=== PATIENT | female | born 1960 | race Caucasian/White ===

== ENCOUNTER → 2018-10-19 15:14 | Outpatient (CLI) | payer MEDICAID, SELFPAY ==
--- NOTE | 2018-10-19 15:20 | XR_ITS ---
XR DEXA axial skeleton HISTORY: ITS.REASON: CHRONIC AROMATASE INHIBITOR USE ORDERING PHYSICIAN: Mac Fernandez PATIENT AGE: 58 years COMPARISON: None FINDINGS: The BMD measured at the AP Spine L1-L4 is 0.728 g/cm squared with a T score of -3.8. This is considered Osteoporotic according to the World Health Organization criteria. Fracture risk is High. Treatment is advised. Mean density of the hips has a T score of -2.1 IMPRESSION: Osteoporosis with high fracture risk. Treatment is advised. Suggest follow-up exam October 2019
== END ==
PROVIDERS: PCP Internal Medicine Medical Oncology; Visit Provider Internal Medicine Medical Oncology
DX: C50.411 Malignant neoplasm of upper-outer quadrant of right female breast (principal); Z17.0 Estrogen receptor positive status [ER+]
CPT/HCPCS: 77080

== ENCOUNTER → 2020-01-04 08:39 | Outpatient (CLI) | payer OTHER, SELFPAY ==
--- NOTE | 2020-01-04 08:43 | XR_ITS ---
PROCEDURE: XR DEXA AXIAL SKELETON CLINICAL HISTORY: OSTEOPENIA, postmenopausal currently on calcium COMPARISON: No exams were available for comparison FINDINGS: The right total hip BMD is 0.782 grams/centimeter squared with a t-score of -1.3. The right femoral neck is 0.616 grams/centimeter sq with a T-score -2.1.. The left total hip BMD is 0.649 grams/centimeter squared with a t-score of -2.4. The left femoral neck is 0.570 grams/centimeter sq with T-score -2.5.. The total lumbar spine BMD is 0.618 grams/centimeters sq with a t-score of -3.9. IMPRESSION: Osteopenia range right hip, osteoporosis values for left hip and lumbar spine, consider follow-up study in approximately 2 years Dictated by: Dr. Alphonso Figueroa MD 01/04/2020 10:17 Dr. Alphonso Figueroa MD in [place] 01/04/2020 10:17
== END ==
PROVIDERS: PCP Family Medicine; Visit Provider Internal Medicine Medical Oncology
DX: M85.89 Other specified disorders of bone density and structure, multiple sites (principal)
CPT/HCPCS: 77080

== ENCOUNTER 2020-08-11 09:58 | Emergency (ER) | payer OTHER, SELFPAY ==
[2020-08-11] VITALS (10 sets, daily range): BP systolic 107–175; BP diastolic 61–128; PULSE 112–152; RESP 18–20; TEMP 36.6–37.7; O2SAT 95–99; BMI 29.2
--- NOTE | 2020-08-11 10:02 | HMH.EDGENADL ---
ED Disposition Clinical Impression: Ureterolithiasis, Dehydration Disposition: Xfer Short-Term Hosp Condition on Discharge: Fair - Critical Care Critical Care Time: No Attestation: On , the high probability of a clinically significant, sudden or life threatening deterioration of the following system(s) required my full and direct attention, intervention and personal management. The time I documented below is in addition to time spent performing reported procedures but includes the following listed in this critical care notation. Medical Decision Making - Medical Records Medical records reviewed: Yes: I reviewed the patient's medical records. - [place] Inquiry Pt receiving controlled substance: Yes [place] was queried for this patient: No Risks and benefits of using a controlled substance: were discussed with pt by me Vital Signs: 08/11/20 09:59 08/11/20 11:33 Temperature 99.8 F H Temperature Source Oral Pulse Rate 134 H Pulse Rate [Radial] 112 H Respiratory Rate 20 Blood Pressure 155/86 H Blood Pressure [Right Arm] 175/100 H Blood Pressure Mean 97 Blood Pressure Mean [Right Arm] 125 Blood Pressure Position [Right Arm] Sitting 02 Sat by Pulse Oximetry 98 99 Oxygen Delivery Method Room Air - Lab Data Lab results reviewed: Yes: I reviewed the patient's lab results. Lab Results 08/11/20 10:20: WBC 17.0 H, RBC 4.54, Hgb 12.5, Hct 38.4, MCV 84.5, MCH 27.4, MCHC 32.5, RDW 14.3, Plt Count 132 L, MPV 9.2, Neut % (Auto) 94.8 H, Lymph % (Auto) 1.8 L, [place] % (Auto) 3.0, Eos % (Auto) 0.2, Baso % (Auto) 0.2, Neut # (Auto) 16.1 H, Lymph # (Auto) 0.3 L, [place] # (Auto) 0.5, Eos # (Auto) 0.0, Baso # (Auto) 0.0, Total Counted 100, Neutrophils % (Manual) 92 H, Band Neutrophils % 4.0, Lymphocytes % (Manual) 1 L, Monocytes % (Manual) 3, Platelet Estimate Normal, RBC Morphology Normal 08/11/20 10:20: Sodium 142, Potassium 4.1, Chloride 102, Carbon Dioxide 26, Anion Gap 18.1 H, BUN 40 H, Creatinine 3.30 H, Estimated Creat Clear 21, Estimated GFR 14 L*, Est GFR ( Amer) 17 L*, Glucose 182 H, Calcium 10.6 H 08/11/20 12:47: Urine Color Yellow, Urine Appearance Sl cloudy, Urine pH 7.0, Ur Specific [place] 1.015, Urine Protein Trace, Urine Glucose (UA) Negative, Urine Ketones Negative, Urine Blood 2+, Urine Nitrate Negative, Urine Bilirubin Negative, Urine Urobilinogen 0.2, Ur Leukocyte Esterase 3+ A, Urine RBC 5-10, Urine WBC Tntc, Ur Squamous Epith Cells None, Urine Bacteria 3+ Result diagrams: 08/11/20 10:20 08/11/20 10:20 Orders (Tests/Meds): ED MEDICATIONS Discontinued Medications Generic Name Dose Route Start Last Admin Trade Name Freq PRN Reason Stop Dose Admin Sodium Chloride 1,000 mls @ 999 mls/hr 08/11/20 10:15 08/11/20 10:38 Sod Chlor 0.9% 1000ml Bag IV 08/11/20 11:15 999 mls/hr .Q1H1M MINI Administration Morphine Sulfate 4 mg 08/11/20 10:02 08/11/20 10:38 Morphine 4mg/Ml Syringe IV 08/11/20 10:03 4 mg ONCE ONE Administration Morphine Sulfate 4 mg 08/11/20 11:40 08/11/20 11:43 Morphine 4mg/Ml Syringe IV 08/11/20 11:41 4 mg ONCE ONE Administration Ondansetron HCl 4 mg 08/11/20 10:02 08/11/20 10:37 Ondansetron 4mg/2ml Vial IV 08/11/20 10:03 4 mg ONCE ONE Administration ORDERS Category Date Time Status Urine Culture Stat Micro 08/11/20 12:47 Received - CT Data CT Scan: Abdomen, Pelvis Time Received: 11:[address] Reviewed: Yes: I have reviewed the patient's CT results Findings Narrative: Moderate-sized calculi at the UV junction of both kidneys with findings of mild to moderate obstructive uropathy of both kidneys though the left kidney appears to have underlying multi-cystic kidney disease Medical Decision Narrative: Lateral UVJ stents, 8 mm left, 9 mm right and new acute renal failure with a creatinine of 3.3. Given fluids, pain control. Urinalysis does not suggest UTI. Patient with anion gap and slight leukocytosis likely secondary
--- NOTE | 2020-08-11 10:08 | CT_ITS ---
PROCEDURE: CT ABDOMEN PELVIS WO CON CLINICAL INDICATION: right flank pain - stone? History of kidney stones COMPARISON: CT ABDPELW/WO CT ABD PELVIS W/WO CONTRAST from 09/07/2014 TECHNIQUE: Axial images obtained with sagittal and coronal reformats. All CT scans at the facility use one or more dose reduction, viz: automated exposure control, ma/kV adjustment per patient size (including targeted exams where dose is matched to indication, i.e. head), or iterative reconstruction technique. FINDINGS: Lower thorax: The lower lung cortez are clear and there is no pleural fluid. ABDOMEN: Liver: No masses or biliary dilatation. Gallbladder: The gallbladder is partially contracted but shows subtle hazy opacities suggesting possibility of biliary sludge but no definite calcified gallstones seen. Pancreas: No masses or peripancreatic fluid collections. Spleen: unremarkable Adrenals: unremarkable Kidneys/ureters: Kidneys are normal size though the left kidney slightly larger than right. Left kidney has a multi-cystic appearance. There is a 8.5 mm calculus sitting at the UV junction causing mild fullness of the left renal pelvis. There is a 9.6 mm calculus at the UV junction right kidney causing mild [place] caliectasis. There is moderate stranding of Gerota's fascia around the right kidney, gerota's fascia around the left kidney appears normal. There couple tiny nonobstructing calculi upper pole right kidney. There are no definite distal ureteral calculi on either side. ABDOMEN & PELVIS: Stomach bowel: There is a moderate-sized sliding hiatal hernia. The stomach and duodenal sweep appear normal. The small bowel is normal. There is minimal scattered gas and stool seen throughout the colon. Patient is post appendectomy. Peritoneum: No abnormal fluid collections. No obvious inflammatory changes. No free air. There is a tiny umbilical hernia containing fat only. Lymph nodes: No enlarged lymph nodes apparent. Vasculature: No evidence of abdominal aortic aneurysm. No retroperitoneal hemorrhage evident. Bones: No acute fracture PELVIS: Reproductive: Post hysterectomy with multiple surgical clips just above the vaginal cuff and posterior to the base of the urinary bladder. Bladder: Decompressed but otherwise appears normal, there is no free fluid in the pelvis. Appendix: Appendectomy IMPRESSION: Moderate-sized calculi at the UV junction of both kidneys with findings of mild to moderate obstructive uropathy of both kidneys though the left kidney appears to have underlying multi-cystic kidney disease Dictated by: Dr. Alphonso Figueroa MD 08/11/2020 10:46 Dr. Alphonso Figueroa MD in [place] 08/11/2020 10:46
[2020-08-11 10:35] LABS: Basophils % 0.2 % (0.1-2.0); Eosinophils % 0.2 % (0.1-12.0); Hematocrit 38.4 % (37.0-47.0); Hemoglobin 12.5 g/dL (12.2-16.2); Lymphocytes # 0.3 K/mm3 (0.7-4.5); Lymphocytes % 1.8 % (10-50); Mean Corpuscular HGB Conc 32.5 g/dL (31.8-35.4); Mean Corpuscular Hemoglobin 27.4 pg (27.0-31.2); Mean Corpuscular Volume 84.5 fl (81-99); Mean Platelet Volume 9.2 fl (7.4-10.4); Monocytes # 0.5 K/mm3 (0.1-1.0); Neutrophils # 16.1 K/mm3 (1.8-7.8); Neutrophils % 94.8 % (37.0-80.0); Platelet Count 132 K/mm3 (142-424); Red Blood Count 4.54 M/mm3 (4.20-5.40); Red Cell Distribution Width 14.3 % (11.5-17.5)
[2020-08-11 10:41] LABS: Potassium 4.1 mmoL/L (3.5-5.1)
[2020-08-11 10:43] LABS: MANUAL DIFFERENTIAL MANUAL DIFFERENTIAL (MANUAL DIFF)
[2020-08-11 10:45] LABS: Anion Gap 18.1 mEq/L (5-15); Blood Urea Nitrogen 40 mg/dl (7-17); Calcium 10.6 mg/dl (8.4-10.2); Carbon Dioxide 26 mmol/L (22.0-30.0); Chloride 102 mmol/L (98-107); Creatinine Clearance Estimated 21 mL/min (50-200); Estimated Glomerular Filt Rate 14 ml/min (>60); GFR (African American) 17 ML/MIN (>60); Glucose 182 mg/dl (74-100); Sodium 142 mmol/L (136-145)
[2020-08-11 11:20] LABS: Lymphocytes % 1 % (10-50); Monocytes % 3 % (2-9); Neutrophils % 92 % (42-76); Platelet Estimate Normal; RBC Morphology Normal; Total Cells Counted 100
[2020-08-11 12:56] LABS: Microscopic, Urine URINE MICROSCOPIC (MICROSCOPIC)
[2020-08-11 12:57] LABS: Appearance,Urine SL CLOUDY (Clear); Bilirubin,Urine Negative (Negative); Blood, Urine 2+ (Negative); Color,Urine YELLOW (Yellow); Glucose,Urine (UA) Negative (Negative); Ketones,Urine Negative (Negative); Leukocyte Esterase,Urine 3+ (Negative); Nitrate,Urine Negative (Negative); Protein,Urine TRACE (Negative); Specific Gravity, Urine 1.015 (1.005-1.030); Urobilinogen,Urine 0.2 EU/dl (0.2)
[2020-08-11 13:04] LABS: Bacteria,Urine 3+ /lpf; WBC,Urine TNTC #/hpf (0-3)
--- NOTE | 2020-08-11 13:17 | PC.NURSE ---
[facility] called for urology
--- NOTE | 2020-08-11 13:43 | PC.NURSE ---
UROLOGY AT [facility] HAS ACCEPTED PT WAITING ON HOSPITALIST TO CALL BACK
--- NOTE | 2020-08-11 14:25 | PC.NURSE ---
hospitalist accepted pt facesheet sent
[2020-08-11 15:11] LABS: Coronavirus 19 IgG Antibody Positive (Negative)
[2020-08-11 15:13] LABS: Coronavirus 19 IgM Antibody Positive (Negative)
--- NOTE | 2020-08-11 15:34 | PC.NURSE ---
attempted to call report to [facility], will call back
--- NOTE | 2020-08-11 16:03 | PC.NURSE ---
report called to [facility]
== END 2020-08-11 16:06 | disposition short-term general hospital (02) ==
PROVIDERS: Emergency Provider Emergency Medicine; PCP Physician Assistant
DX: N20.1 Calculus of ureter (principal); E86.0 Dehydration; I10 Essential (primary) hypertension; E78.5 Hyperlipidemia, unspecified; Z01.84 Encounter for antibody response examination; Z79.899 Other long term (current) drug therapy; Z85.3 Personal history of malignant neoplasm of breast
CPT/HCPCS: 74176; 80048; 81001; 85007; 85025; 86328; 87086; 87088; 87186; 96365; 96367; 96375; 96376; 99284; J2405

== ENCOUNTER → 2020-09-05 09:43 | Outpatient (CLI) | payer OTHER, SELFPAY ==
--- NOTE | 2020-09-05 09:45 | XR_ITS ---
PROCEDURE: XR DEXA AXIAL SKELETON CLINICAL HISTORY: POST MENOPAUSAL COMPARISON: No exams were available for comparison FINDINGS: The right hip BMD is 0.630 with a T-score of -2.0. The left hip BMD is 0.647 with a T-score of -2.4. The lumbar spine BMD is 0.640 with a T-score of -3.7. IMPRESSION: This patient is considered osteoporotic according to the World Health Organization criteria. Fracture risk is high. Treatment is advised. Based on these results a follow-up exam is recommended in 1 year. Dictated by: Kenyon Miguel MD 09/06/2020 13:56 Kenyon Miguel MD in [facility] 09/06/2020 13:56
== END ==
PROVIDERS: PCP Physician Assistant; Visit Provider Internal Medicine Medical Oncology
DX: M81.0 Age-related osteoporosis without current pathological fracture (principal); Z78.0 Asymptomatic menopausal state
CPT/HCPCS: 77080

== ENCOUNTER → 2020-09-26 10:40 | Outpatient (CLI) | payer OTHER, SELFPAY | PROVIDERS: PCP Family Medicine; Visit Provider Urology | DX: Z01.812 Encounter for preprocedural laboratory examination (principal); Z11.52 Encounter for screening for COVID-19; N20.1 Calculus of ureter | CPT/HCPCS: U0003 ==

== ENCOUNTER → 2020-10-10 11:12 | Outpatient (CLI) | payer OTHER, SELFPAY | PROVIDERS: Visit Provider Urology | DX: Z20.822 Contact with and (suspected) exposure to COVID-19 (principal) | CPT/HCPCS: U0003 ==

== ENCOUNTER → 2020-11-01 12:34 | Outpatient (CLI) | payer OTHER, SELFPAY | PROVIDERS: Visit Provider Urology | DX: Z20.822 Contact with and (suspected) exposure to COVID-19 (principal) | CPT/HCPCS: U0003 ==

== ENCOUNTER → 2020-11-21 10:33 | Outpatient (CLI) | payer OTHER, SELFPAY ==
[2020-11-21 10:38] LABS: Microscopic, Urine URINE MICROSCOPIC (MICROSCOPIC)
[2020-11-21 10:47] LABS: Appearance,Urine CLEAR (Clear); Bilirubin,Urine Negative (Negative); Blood, Urine 1+ (Negative); Color,Urine YELLOW (Yellow); Glucose,Urine (UA) Negative (Negative); Ketones,Urine Negative (Negative); Leukocyte Esterase,Urine Negative (Negative); Nitrate,Urine Negative (Negative); Protein,Urine Negative (Negative); Urobilinogen,Urine 0.2 EU/dl (0.2)
[2020-11-21 11:00] LABS: Squamous Epithelial Cell,Urine Occasional #/hpf (0-5)
== END ==
PROVIDERS: Visit Provider Internal Medicine Infectious Disease
DX: N10 Acute pyelonephritis (principal)
CPT/HCPCS: 81001; 87086; 87088; 87186

== ENCOUNTER → 2021-05-17 10:30 | Outpatient (CLI) | payer OTHER, SELFPAY ==
[2021-05-17 11:48] LABS: Alanine Aminotransferase 10 U/L (12-78); Albumin Level 4.3 g/dl (3.5-5.0); Albumin/Globulin Ratio 1.6 (1.1-1.8); Alkaline Phosphatase 39 U/L (38-126); Anion Gap 12.5 mEq/L (5-15); Aspartate Amino Transferase 26 U/L (14-36); Bilirubin,Total 0.4 mg/dl (0.2-1.3); Blood Urea Nitrogen 27 mg/dl (7-17); Calcium 10.1 mg/dl (8.4-10.2); Carbon Dioxide 28 mmol/L (22.0-30.0); Chloride 103 mmol/L (98-107); Chol/HDL Ratio 3.4 (1-3.5); Cholesterol 205 mg/dl (140-200); Estimated Glomerular Filt Rate 38 ml/min (>60); GFR (African American) 47 ML/MIN (>60); Globulin 2.7 g/dL (1.3-3.2); Glucose 98 mg/dl (74-100); HDL Cholesterol 61 mg/dl (40-60); Potassium 4.5 mmoL/L (3.5-5.1); Sodium 139 mmol/L (136-145); Triglycerides 211 mg/dl (30-150); VLDL Cholesterol 42 mg/dL (0-40)
[2021-05-17 11:59] LABS: Direct LDL Cholesterol 111.38 mg/dL (100-129)
[2021-05-17 17:20] LABS: Hemoglobin A1C 5.8 % (4.0-6.0)
== END ==
PROVIDERS: Visit Provider Physician Assistant
DX: I10 Essential (primary) hypertension (principal); E78.2 Mixed hyperlipidemia; R73.09 Other abnormal glucose
CPT/HCPCS: 36415; 80053; 80061; 83036

== ENCOUNTER → 2021-07-24 09:46 | Outpatient (CLI) | payer OTHER, SELFPAY ==
--- NOTE | 2021-07-24 09:51 | US_ITS ---
FINAL REPORT TECHNIQUE: Ultrasound images of the kidneys and bladder were obtained. CLINICAL HISTORY: HYRONEPHROSIS FINDINGS: The right kidney measures 9.5 cm in length. It is normal in echogenicity. There is no hydronephrosis. The left kidney measures 11.1 cm in length. It is normal in echogenicity. There is moderate to severe hydronephrosis. The spleen is unremarkable. Incidental finding of gallstone in the gallbladder. IMPRESSION: Moderate to severe left hydronephrosis. Reviewed, Interpreted and Dictated by Patrick Pizano III, MD Transcribed by Karla Brewer Authenticated by Patrick Pizano III, MD on 07/24/2021 12:49:00 PM [facility]
== END ==
PROVIDERS: PCP Family Medicine; Visit Provider Urology
DX: N18.30 Chronic kidney disease, stage 3 unspecified (principal); N20.0 Calculus of kidney
CPT/HCPCS: 76770

== ENCOUNTER → 2022-03-13 08:44 | Outpatient (CLI) | payer OTHER, SELFPAY ==
--- NOTE | 2022-03-13 08:55 | XR_ITS ---
FINAL REPORT TECHNIQUE: Bone densitometry calculations of the lumbar spine and hip were obtained. CLINICAL HISTORY: osteoporosis COMPARISON: 09/05/2020 FINDINGS: DEXA BONE DENSITY AXIAL SKELETON Using L1-4, the bone mineral density of the spine is 0.679 g/cm2, corresponding to T-score of -3.3. Previously measured 0.640 g/cm2, corresponding to T-score of -3.7. Using the left hip, the bone mineral density of the femoral neck is 0.659 g/cm2, corresponding to a T-score of -2.3. Previously measured 0.647 g/cm2, corresponding to T-score of -2.4. NOTE: T-score: Standard deviation compared with peak bone mass of young adult mean. *Following the recommendations of the International Society of Bone densitometry, classification of hip BMD is based on the lower of two T-scores; total hip or femoral neck. IMPRESSION: Osteoporosis: Lowest T-score is at or below -2.5. This patient's T-score meets the World Health Organization criteria for osteoporosis. FRAX not reported because: Some T-score for Spine Total or hip Total or femoral neck at or below -2.5. Patient treated for osteoporosis. Reviewed, Interpreted and Dictated by Patrick Pizano III, MD Transcribed by Karla Brewer Authenticated and [facility]
== END ==
PROVIDERS: PCP Family Medicine; Visit Provider Physician Assistant
DX: M81.0 Age-related osteoporosis without current pathological fracture (principal)
CPT/HCPCS: 77080

== ENCOUNTER → 2022-05-02 08:46 | Outpatient (CLI) | payer OTHER, SELFPAY ==
--- NOTE | 2022-05-02 08:49 | US_ITS ---
FINAL REPORT CLINICAL HISTORY: NAUSEA AND VOMITING FINDINGS: Sonographic images of the right upper quadrant were obtained. The pancreas is partially obscured. The liver has increased echogenicity consistent with fatty infiltration. There is a large gallstone within the gallbladder. There is no evidence of biliary ductal dilatation.The common duct measures 2 mm. Limited images of the right kidney are unremarkable. IMPRESSION: Fatty liver. Cholelithiasis. Reviewed, Interpreted and Dictated by Patrick Pizano III, MD Transcribed by Karla Brewer Authenticated and [facility]
== END ==
PROVIDERS: PCP Family Medicine; Visit Provider Physician Assistant
DX: R11.2 Nausea with vomiting, unspecified (principal)
CPT/HCPCS: 76705

== ENCOUNTER → 2022-05-09 12:40 | Outpatient (CLI) | payer OTHER, SELFPAY | PROVIDERS: PCP Family Medicine; Visit Provider Urology | DX: N13.1 Hydronephrosis with ureteral stricture, not elsewhere classified (principal) ==

== ENCOUNTER → 2022-05-17 09:23 | Outpatient (POV) | payer OTHER, SELFPAY | PROVIDERS: Visit Provider Internal Medicine Nephrology | DX: Z00.00 Encounter for general adult medical examination without abnormal findings (principal) ==

== ENCOUNTER → 2022-05-17 09:33 | Outpatient (CLI) | payer OTHER, SELFPAY ==
--- NOTE | 2022-05-17 09:37 | NM_ITS ---
FINAL REPORT CLINICAL HISTORY: HYDRONEPHROSIS DUE TO OBSTRUCTION FINDINGS: FINDINGS: KIDNEY IMAGING W/FUNCTION STUDY NM Sequential posterior projection images of the abdomen and pelvis were obtained after the intravenous injection of 9.72 mCi of technetium 99m MAG3. On perfusion imaging there is normal perfusion to the right kidney. There is markedly diminished perfusion to the left kidney. Twelve % uptake in the left kidney and 88 % uptake in the right kidney. On function imaging the time to peak of the left kidney is 19 minutes, markedly delayed. There is no significant excretion by the left kidney. The time to peak for the right kidney is 9 minutes, delayed but excretion curve is otherwise normal. IMPRESSION: Markedly decreased perfusion to the left kidney with no appreciable excretion. Somewhat delayed time to peak for the right kidney with otherwise normal excretion curve. Reviewed, Interpreted and Dictated by Patrick Pizano III, MD Transcribed by Clay Lu Authenticated and [facility]
== END ==
PROVIDERS: PCP Family Medicine; Visit Provider Urology
DX: N13.1 Hydronephrosis with ureteral stricture, not elsewhere classified (principal)
CPT/HCPCS: 78707; A9562

== ENCOUNTER → 2022-06-03 07:50 | Outpatient (CLI) | payer OTHER, SELFPAY ==
--- NOTE | 2022-06-03 07:51 | FL_ITS ---
FINAL REPORT CLINICAL HISTORY: . abd pain 1:05 fluoro time FINDINGS: SMALL BOWEL FOLLOW THROUGH HISTORY: Right upper quadrant abdominal pain . PROCEDURE: The patient ingested barium. Spot and overhead films were obtained. FINDINGS: The sharepoint net developer film demonstrates multiple surgical clips overlying the pelvis. The transit time to the colon is normal. Contrast reaches the colon in 30 minutes. The mucosal fold pattern is normal. Spot images of the terminal ileum are grossly unremarkable. A total of 17 images were saved. Fluoroscopy time: 1 minute 5 seconds IMPRESSION: Normal small bowel follow-through. Reviewed, Interpreted and Dictated by Estrella Shin MD Transcribed by Sis Hills PA-C Authenticated and [facility]
--- NOTE | 2022-06-03 07:51 | FL_ITS ---
FINAL REPORT CLINICAL HISTORY: . dysphagia, gallstones, abd pain 1:25 fluoro time FINDINGS: AIR CONTRAST UPPER GI HISTORY: Dysphagia, gallstones, right upper quadrant abdominal pain. TECHNIQUE: Patient ingested thick and thin barium contrast. Effervescent crystals were also administered. Spot and overhead films were obtained. FINDINGS: There is a small sliding type hiatal hernia identifed. No mucosal defects are seen and motility appears normal. The stomach is of normal size, shape and position. No gastric filling defects are seen. The duodenal bulb and sweep appear unremarkable. There is gastroesophageal reflux to the midesophagus. 13mm Barium tablet passes easily through the esophagus and into the stomach. 32 images were saved. Fluoroscopy time: 1 minute 25 seconds IMPRESSION: Small sliding type hiatal hernia with gastroesophageal reflux. Otherwise, unremarkable upper GI series. Reviewed, Interpreted and Dictated by Estrella Shin MD Transcribed by Sis Hills PA-C Authenticated and [facility]
== END ==
PROVIDERS: PCP Family Medicine; Visit Provider Surgery
DX: R13.10 Dysphagia, unspecified (principal)
CPT/HCPCS: 74221; 74246; 74250

== ENCOUNTER 2022-07-23 07:20 | Day surgery (SDC) | payer OTHER, SELFPAY ==
[2022-07-19 13:10] VITALS: BMI 27.3
[2022-07-23 07:34] VITALS: BP 120/56; PULSE 79; RESP 18; TEMP 36.8; O2SAT 98
--- NOTE | 2022-07-23 07:47 | P.PN_ITS ---
[facility] Disclaimer: The information contained in this section may have been updated after the patient was seen, as this information can be updated by other users. Medical History Breast cancer History of gastroesophageal reflux (GERD) Hyperlipidemia Hypertension Hypertension Kidney stone Osteoporosis Urinary tract infection Surgical History History of appendectomy History of section History of hysterectomy History of lumpectomy Family History Father Family history of Alzheimer's disease Family history of stroke Social History Smoking Status: Never smoker alcohol intake: never substance use type: denies use current occupational status: employed Travel in the last 8 weeks: None [facility] Anesthesia Checklist Patient Identification Patient Identification: Arm Band and Verbal (Name & ) Structural Data Admitted From: Home Planned Operative Procedure/s: EGD Consent for Planned Operative Procedure(s) Verified: Yes NPO Status Verified Time NPO: 00:00 Airway Assessment C-Spine Mobility Assessed: Yes TMJ Mobility Assessed: Yes Dentition: Poor Dentition Neurological Assessment Level of Consciousness: Awake Hx Seizures: No Numbness or tingling in extremities: No Anesthesia Plan Anesthesia Risk discussed: Yes Anesthesia Plan: Verified ASA Class: II Anesthesia Type: MAC
--- NOTE | 2022-07-23 08:14 | HMH.SCOPE ---
Procedure: Date: 07/23/22 Patient Date of :: 1960 Procedure Performed:: Esophagogastroduodenoscopy with biopsy Indications:: Dysphagia Reflux Left upper quadrant pain Forwarded from recent office visit: UGI/BS Details: The patient returns for follow-up status post barium swallow/UGI/SBFT.? Small bowel follow-through essentially normal.? Barium swallow/UGI series revealed small sliding hiatal hernia with reflux noted to the mid esophagus.? No other anomalies noted.? Please see truncated portion of note forwarded below from most recent visit on May 15, 2022. Still complains of reflux and difficulty with things going through .? She continues to deny right upper quadrant pain or postprandial nausea.? She also has no history of jaundice. Forwarded from May 15, 2022 note: Details: This is a 62-year-old female seen in consultation from Dr. Burch and Naya Begum PA-C for evaluation regarding cholelithiasis.? Over the past few months she has had left-sided abdominal pain and reflux.? She also states that things do not seem to go down right .? She does have some emesis but she states that it almost always is caused by coughing .? Recent ultrasound did reveal a large gallstone within the gallbladder.? No biliary dilatation noted.? No evidence of cholecystitis noted. (1) Left upper quadrant pain: ?Plan: Proton pump inhibition (2) Dysphagia: ? ? ?Plan: Barium swallow/UGI/SBFT ordered Possible EGD in near future (3) Nausea & vomiting: ? ? ?Plan: UGI/SBFT ordered May benefit from gastric emptying scan (4) Gastroesophageal reflux: ? ? ?Plan: Proton pump inhibition Possible EGD in near future (5) Cholelithiasis: ? ? ?Plan: Discussion with regard to possible laparoscopic cholecystectomy will be ongoing Performing Provider:: Harmeet Smith MD Referring Provider:: . Sedation:: Monitored anesthesia care Procedure:: After informed consent was obtained the patient was taken to the endoscopy suite. Sedation ensued after the patient was transferred to the left lateral decubitus position. Pulse, blood pressure, and oxygen saturation were monitored throughout the procedure. The endoscope was advanced beyond the duodenal bulb. Retroflexion within the gastric lumen was accomplished. The gastroscope was carefully removed and the patient was transferred to recovery in stable condition. Please see findings and specimens below for detail. Findings:: Gastroesophageal junction displaced at 32 cm Sliding hiatal hernia (moderate) Streaking distal gastritis (mild) Somewhat stenotic pylorus (no dilation today beyond what was provided by passage of the endoscope) Specimens:: Antral biopsy Recommendations:: Somewhat stenotic pylorus; however, no obvious gastric outlet obstruction or delay noted per UGI/SBFT. May benefit from gastric emptying study. May benefit from short-term repeat EGD with dilatation. Sliding hiatal hernia confirmed; however, no definitive inflammatory changes of the mid/distal esophagus. Continue proton pump inhibition. Complications:: No immediate Estimated blood obtained (mL): 1
[2022-07-23 08:16] VITALS: O2SAT 98
[2022-07-23 08:31] VITALS: BP 103/74; PULSE 102; RESP 15; TEMP 36.6; O2SAT 94
[2022-07-23 08:41] VITALS: BP 96/46; PULSE 78; RESP 16; O2SAT 98
[2022-07-23 09:01] VITALS: BP 107/48; PULSE 82; RESP 16; TEMP 36.8; O2SAT 98
[2022-07-23 09:51] VITALS: BP 98/58; PULSE 82; RESP 16; O2SAT 98
== END 2022-07-23 09:05 | disposition home or self-care (01) ==
PROVIDERS: PCP Family Medicine; Visit Provider Surgery
PROC: 0DJ08ZZ Inspection of Upper Intestinal Tract, Via Natural or Artificial Opening Endoscopic (ICD-10-PCS; CPT 43235; principal; 2022-07-23 08:30)
DX: R13.10 Dysphagia, unspecified (principal); K21.9 Gastro-esophageal reflux disease without esophagitis; K31.9 Disease of stomach and duodenum, unspecified; R10.12 Left upper quadrant pain; K44.9 Diaphragmatic hernia without obstruction or gangrene; K29.70 Gastritis, unspecified, without bleeding; Z79.899 Other long term (current) drug therapy
CPT/HCPCS: 43239

== ENCOUNTER → 2022-10-21 09:35 | Outpatient (CLI) | payer OTHER, SELFPAY | PROVIDERS: PCP Family Medicine; Visit Provider Internal Medicine Nephrology | DX: Z78.0 Asymptomatic menopausal state (principal) ==

== ENCOUNTER 2023-09-17 15:16 | Outpatient (CLI) | payer OTHER, SELFPAY ==
[2023-09-17 15:28] LABS: Microscopic, Urine URINE MICROSCOPIC (MICROSCOPIC)
[2023-09-17 16:39] LABS: Hematocrit 36.9 % (37.0-47.0); Hemoglobin 11.9 g/dL (12.2-16.2); Mean Corpuscular HGB Conc 32.4 g/dL (31.8-35.4); Mean Corpuscular Hemoglobin 28.6 pg (27.0-31.2); Mean Corpuscular Volume 88.4 fl (81-99); Platelet Count 194 K/mm3 (142-424); Red Blood Count 4.17 M/mm3 (4.20-5.40); Red Cell Distribution Width 14.7 % (11.5-17.5); White Blood Count 6.5 K/mm3 (4.8-10.8)
[2023-09-17 17:05] LABS: Albumin Level 4.5 g/dl (3.5-5.0); Blood Urea Nitrogen 24 mg/dl (7-17); Calcium 9.9 mg/dl (8.4-10.2); Carbon Dioxide 26 mmol/L (22.0-30.0); Chloride 108 mmol/L (98-107); Estimated Glomerular Filt Rate 33 ml/min (>60); GFR (African American) 40 ML/MIN (>60); Glucose 103 mg/dl (74-100); Phosphorous 4.4 mg/dl (2.5-4.5); Sodium 142 mmol/L (136-145)
[2023-09-17 17:24] LABS: 25-OH Vitamin D, Total 51.9 ng/mL (30-100)
[2023-09-17 18:11] LABS: Appearance,Urine SL CLOUDY (Clear); Bilirubin,Urine Negative (Negative); Blood, Urine 1+ (Negative); Color,Urine YELLOW (Yellow); Glucose,Urine (UA) Negative (Negative); Ketones,Urine Negative (Negative); Leukocyte Esterase,Urine 1+ (Negative); Nitrate,Urine POSITIVE (Negative); Protein,Urine Negative (Negative); Specific Gravity, Urine >= 1.030 (1.005-1.030); Urobilinogen,Urine 0.2 EU/dl (0.2)
[2023-09-17 19:30] LABS: Bacteria,Urine 3+ /lpf; RBC,Urine Occasional #/hpf (0-3); Squamous Epithelial Cell,Urine Occasional #/hpf (0-5); Transitional Epi Cells,Urine OCC #/lpf (0-3)
[2023-09-17 20:49] LABS: Creatinine,Urine Random 118 mg/dL (Not Estab.)
[2023-09-25 15:13] LABS: PTH Related Peptide < 2.0
== END 2023-09-17 23:59 | disposition home or self-care (01) ==
LOC: LAB 15:17
PROVIDERS: PCP Family Medicine; Visit Provider Nurse Practitioner
DX: N18.32 Chronic kidney disease, stage 3b (principal); E55.9 Vitamin D deficiency, unspecified; N39.0 Urinary tract infection, site not specified; B96.29 Other Escherichia coli [E. coli] as the cause of diseases classified elsewhere
CPT/HCPCS: 36415; 80069; 81001; 82306; 82397; 82570; 84156; 85014; 85018; 85048; 85049; 87086

== ENCOUNTER 2023-09-22 13:03 | Outpatient (POV) | payer OTHER, SELFPAY | END 2023-09-22 23:59 | disposition home or self-care (01) | LOC: SC 13:03 | PROVIDERS: Visit Provider Nurse Practitioner | DX: Z00.00 Encounter for general adult medical examination without abnormal findings (principal) ==

== ENCOUNTER 2024-02-26 08:19 | Outpatient (CLI) | payer OTHER, SELFPAY ==
[2024-02-26 08:26] LABS: Microscopic, Urine URINE MICROSCOPIC (MICROSCOPIC)
[2024-02-26 08:47] LABS: Hematocrit 37.4 % (37.0-47.0); Hemoglobin 12.2 g/dL (12.2-16.2); Mean Corpuscular HGB Conc 32.7 g/dL (31.8-35.4); Mean Corpuscular Hemoglobin 28.7 pg (27.0-31.2); Mean Corpuscular Volume 87.6 fl (81-99); Platelet Count 208 K/mm3 (142-424); Red Blood Count 4.26 M/mm3 (4.20-5.40); Red Cell Distribution Width 14.9 % (11.5-17.5); White Blood Count 4.8 K/mm3 (4.8-10.8)
[2024-02-26 09:37] LABS: Appearance,Urine CLEAR (Clear); Bilirubin,Urine Negative (Negative); Blood, Urine TRACE-I (Negative); Color,Urine YELLOW (Yellow); Glucose,Urine (UA) Negative (Negative); Ketones,Urine Negative (Negative); Leukocyte Esterase,Urine TRACE (Negative); Nitrate,Urine POSITIVE (Negative); Protein,Urine Negative (Negative); Urobilinogen,Urine 0.2 EU/dl (0.2)
[2024-02-26 09:45] LABS: Albumin Level 4.4 g/dl (3.5-5.0); Anion Gap 5.9 mEq/L (5-15); Blood Urea Nitrogen 34 mg/dl (7-17); Carbon Dioxide 29 mmol/L (22.0-30.0); Chloride 105 mmol/L (98-107); Estimated Glomerular Filt Rate 27 ml/min (>60); GFR (African American) 32 ML/MIN (>60); Glucose 183 mg/dl (74-100); Phosphorous 4.8 mg/dl (2.5-4.5); Potassium 3.9 mmoL/L (3.5-5.1); Sodium 136 mmol/L (136-145)
[2024-02-26 09:57] LABS: Intact Parathyroid Hormone 117.8 pg/mL (7.5-53.5)
[2024-02-26 10:02] LABS: 25-OH Vitamin D, Total 56.4 ng/mL (30-100)
[2024-02-26 10:22] LABS: Bacteria,Urine 4+ /lpf; Squamous Epithelial Cell,Urine Occasional #/hpf (0-5)
[2024-02-26 13:02] LABS: Creatinine,Urine Random 100 mg/dL (Not Estab.)
[2024-03-02 02:30] LABS: Tandem-R Ostase 6.4 ug/L (.)
[2024-03-09 18:09] LABS: C-Telopeptide Serum 284 pg/mL (.)
[2024-03-25 15:42] LABS: Serial Monitoring PDF SCANNED IMAGE
== END 2024-02-26 23:59 | disposition home or self-care (01) ==
LOC: LAB 08:20
PROVIDERS: PCP Family Medicine; Visit Provider Nurse Practitioner
DX: N18.32 Chronic kidney disease, stage 3b (principal); M81.0 Age-related osteoporosis without current pathological fracture
CPT/HCPCS: 36415; 80069; 81001; 82306; 82523; 82570; 83970; 84080; 84156; 85027

== ENCOUNTER 2024-07-12 07:42 | Outpatient (CLI) | payer OTHER, SELFPAY ==
[2024-07-12 07:48] LABS: Microscopic, Urine URINE MICROSCOPIC (MICROSCOPIC)
[2024-07-12 08:30] LABS: Chloride 104 mmol/L (98-107)
[2024-07-12 08:31] LABS: Sodium 142 mmol/L (136-145)
[2024-07-12 08:33] LABS: Estimated Glomerular Filt Rate 25 ml/min (>60); GFR (African American) 31 ML/MIN (>60)
[2024-07-12 08:42] LABS: Albumin Level 4.6 g/dl (3.5-5.0); Potassium 3.7 mmoL/L (3.5-5.1)
[2024-07-12 08:45] LABS: Anion Gap 14.7 mEq/L (5-15); Blood Urea Nitrogen 34 mg/dl (7-17); Calcium 9.8 mg/dl (8.4-10.2); Carbon Dioxide 27 mmol/L (22.0-30.0); Glucose 108 mg/dl (74-100); Phosphorous 4.8 mg/dl (2.5-4.5)
[2024-07-12 08:51] LABS: Creatinine,Urine Random 184 mg/dL (Not Estab.)
[2024-07-12 09:09] LABS: Bacteria,Urine 4+ /lpf; RBC,Urine Occasional #/hpf (0-3)
[2024-07-12 09:10] LABS: Appearance,Urine CLEAR (Clear); Bilirubin,Urine Negative (Negative); Blood, Urine 1+ (Negative); Color,Urine YELLOW (Yellow); Glucose,Urine (UA) Negative (Negative); Ketones,Urine Negative (Negative); Leukocyte Esterase,Urine TRACE (Negative); Nitrate,Urine POSITIVE (Negative); Protein,Urine Negative (Negative); Specific Gravity, Urine >= 1.030 (1.005-1.030); Urobilinogen,Urine 0.2 EU/dl (0.2)
== END 2024-07-12 23:59 | disposition home or self-care (01) ==
LOC: LAB 07:43
PROVIDERS: PCP Family Medicine; Visit Provider Nurse Practitioner
DX: I12.9 Hypertensive chronic kidney disease with stage 1 through stage 4 chronic kidney disease, or unspecified chronic kidney disease (principal); N18.32 Chronic kidney disease, stage 3b
CPT/HCPCS: 36415; 80069; 81001; 82570; 84156; 87086; 87088; 87186

== ENCOUNTER 2024-09-02 08:54 | Outpatient (CLI) | payer OTHER, SELFPAY ==
--- NOTE | 2024-09-02 08:56 | XR_ITS ---
FINAL REPORT CLINICAL HISTORY: post menopausal COMPARISON: 06/13/2021 FINDINGS: Using L1-4, the bone mineral density of the spine is 0.692 g/cm2, corresponding to T-score of -3.2. Using the left hip, the bone mineral density of the femoral neck is 0.566 g/cm2, corresponding to a T-score of -2.6. Using the right hip, the bone mineral density of the femoral neck is 0.561 g/cm2, corresponding to a T-score of -2.6. IMPRESSION: Bone mineral density of the lumbar spine and bilateral femoral necks is within the osteoporotic range. NOTE: T-score: Standard deviation compared with peak bone mass of young adult mean. *Following the recommendations of the International Society of Bone densitometry, classification of hip BMD is based on the lower of two T-scores; total hip or femoral neck. Reviewed, Interpreted and Dictated by Shad Roach MD Transcribed by Roxie Roberto Authenticated and [facility]
== END 2024-09-02 23:59 | disposition home or self-care (01) ==
LOC: RAD 08:55
PROVIDERS: PCP Family Medicine; Visit Provider Physician Assistant
DX: Z78.0 Asymptomatic menopausal state (principal)
CPT/HCPCS: 77080